=== PATIENT | female | born 1990 | race Two or more races ===

== ENCOUNTER 2024-11-30 08:30 | Outpatient (RCR) | payer MEDICAID, SELFPAY ==
[2024-11-29 08:27] LABS: HCG Qualitative,Urine Negative
--- NOTE | 2024-11-29 08:30 | XR_ITS ---
Examination: Nuclear medicine thyroid uptake and scan Exam date and time: October 01, 2024 0722 hours INDICATIONS: Patient states swollen lumps in the neck with clinical diagnosis hyperthyroidism 2019 TECHNIQUE AND FINDINGS: Oral administration 292 uCi I-[id number] 6 hour 24 hour uptake values recorded as well as anterior and oblique scans 6 hour uptake 21.1% normal range 6-24% Thyroid scans demonstrate hyperfunctioning lower pole left thyroid nodule IMPRESSION: Hyperfunctioning lower pole left thyroid nodule, consider correlation with thyroid sonography
== END 2024-12-05 23:59 | disposition home or self-care (01) ==
LOC: SNUC 08:30
PROVIDERS: PCP Registered Nurse; Referring Provider Registered Nurse; Visit Provider Registered Nurse
DX: E04.1 Nontoxic single thyroid nodule (principal)
CPT/HCPCS: 78013; 81025; A9516